=== PATIENT | female | born 1980 | race Caucasian/White ===

== ENCOUNTER 2020-12-17 10:27 | Emergency (ER) | payer OTHER ==
[~2020-12-17] VITALS: Ht 160 cm; Wt 75.3 kg
[2020-12-17] MEDS ORDERED: ZOLOFT 50 MG TA50 MG PO (10:49)
[2020-12-17] MEDS ORDERED: BUSPAR30 MG PO (10:50)
[2020-12-17] MEDS ORDERED: ZYRTEC10 MG PO (10:50)
[2020-12-17] MEDS ORDERED: VENTOLIN HFA 1818 GM INH (10:58)
[2020-12-17] MEDS ORDERED: ZPAK PO (10:58)
[2020-12-17] MEDS ORDERED: PREDNISONE 20 M20 M1 PO (10:58)
[2020-12-17 11:22] VITALS: BP 124/68
== END 2020-12-17 11:22 | disposition home or self-care (01) ==
LOC: M.ERS 10:27
DX: J40 Bronchitis, not specified as acute or chronic (principal); Z20.822 Contact with and (suspected) exposure to COVID-19; Z79.899 Other long term (current) drug therapy; Z88.6 Allergy status to analgesic agent